=== PATIENT | female | born 1950 | race Caucasian/White ===

== ENCOUNTER → 2021-06-11 | Outpatient (CLI) | payer MEDICARE, OTHER ==
[~2021-06-11] MED LIST: ALDACTONE 25MG25 MG PO; AMIODARONE HCL200 MG PO; ELIQUIS 5 MG TAB5 MG PO; ENTRESTO 24 MG1 EACH PO; FUROSEMIDE40 MG PO; MEDROL4 MG PO; METOPROLOL SUCC50 MG PO
== END ==
LOC: ECHO 09:02 → HEART 5 09:02
DX: R06.02 Shortness of breath (principal); I20.8 Other forms of angina pectoris; I08.3 Combined rheumatic disorders of mitral, aortic and tricuspid valves
CPT/HCPCS: ECHO; 78452; 93306; A9502

== ENCOUNTER → 2021-06-19 | Outpatient (CLI) | payer MEDICARE | LOC: HEART 5 09:10 | DX: R06.02 Shortness of breath (principal); Z79.899 Other long term (current) drug therapy | CPT/HCPCS: 94010; 94729 ==

== ENCOUNTER → 2022-02-12 | Outpatient (CLI) | payer MEDICARE, OTHER | LOC: HEART 5 13:24 | DX: I49.5 Sick sinus syndrome (principal) ==

== ENCOUNTER 2022-03-21 06:56 | Inpatient (IN) | payer MEDICARE, MEDICAID ==
[~2022-03-21] VITALS: Ht 160 cm; Wt 90.7 kg
[2022-03-21 08:21] LABS: HEMOGLOBIN 14.5 gm/dl (12.3-15.3); RED BLOOD COUNT 4.73 M/UL (4.00-5.10); WHITE BLOOD COUNT 8.2 K/UL (4.5-11.0)
[2022-03-21 09:04] LABS: BUN/CREATININE RATIO 18 (0-10)
[2022-03-21] MEDS ORDERED: AMIODARONE HCL200 MG PO (12:59)
[2022-03-21] MEDS ORDERED: FUROSEMIDE20 MG PO (13:00)
[2022-03-21] MEDS ORDERED: ENTRESTO 24 MG1 EACH PO (13:01)
[2022-03-21] MEDS ORDERED: FLONASE 0.05% N16 GM (13:02)
[2022-03-21] MEDS ORDERED: NITROGLYCERIN0.4 MG SL (13:02)
[2022-03-21] MEDS ORDERED: CYANOCOBAL1000 MCG/1 INJ (13:03)
[2022-03-22 05:03] LABS: HEMOGLOBIN 13.8 gm/dl (12.3-15.3); RED BLOOD COUNT 4.6 M/UL (4.00-5.10); WHITE BLOOD COUNT 7.5 K/UL (4.5-11.0)
[2022-03-22 05:22] LABS: BUN/CREATININE RATIO 15 (0-10)
[2022-03-22] MEDS ORDERED: CARDIZEM 60MG T60 MG PO (19:29)
== END 2022-03-22 19:45 | disposition home or self-care (01) | DRG 309 ==
LOC: ER1 06:56 → PROG CARE 11:24 → CDU 11:24 → PROG CARE 16:39
PROVIDERS: Physician Assistant; Student in an Organized Health Care Education/Training Program; ADMIT Internal Medicine
DX: I48.0 Paroxysmal atrial fibrillation (principal); I50.22 Chronic systolic (congestive) heart failure; J98.11 Atelectasis; N39.0 Urinary tract infection, site not specified; F17.200 Nicotine dependence, unspecified, uncomplicated; J44.9 Chronic obstructive pulmonary disease, unspecified; I27.20 Pulmonary hypertension, unspecified; I42.8 Other cardiomyopathies; I25.10 Atherosclerotic heart disease of native coronary artery without angina pectoris; F41.9 Anxiety disorder, unspecified; F32.A Depression, unspecified; I49.5 Sick sinus syndrome; E78.5 Hyperlipidemia, unspecified; I11.0 Hypertensive heart disease with heart failure; Z86.14 Personal history of Methicillin resistant Staphylococcus aureus infection; Z79.899 Other long term (current) drug therapy; Z95.1 Presence of aortocoronary bypass graft; Z90.710 Acquired absence of both cervix and uterus; Z83.6 Family history of other diseases of the respiratory system; Z80.0 Family history of malignant neoplasm of digestive organs; Z79.01 Long term (current) use of anticoagulants; Z86.16 Personal history of COVID-19; Z86.73 Personal history of transient ischemic attack (TIA), and cerebral infarction without residual deficits; Z95.0 Presence of cardiac pacemaker
CPT/HCPCS: 0240U; 36415; 71045; 71046; 80048; 80053; 81001; 82550; 82553; 83605; 83735; 83880; 84484; 85025; 85610; 85730; 87086; 93005; 96374; 96375; 99285; J0696

== ENCOUNTER 2022-06-10 08:20 | Emergency (ER) | payer MEDICARE ==
[~2022-06-10 08:20] MED LIST changes: +CARDIZEM 60MG T60 MG PO; +CYANOCOBAL1000 MCG/1 INJ; +FLONASE 0.05% N16 GM; +FUROSEMIDE20 MG PO; +NITROGLYCERIN0.4 MG SL
[2022-06-10 09:51] LABS: HEMOGLOBIN 15.1 gm/dl (12.3-15.3); RED BLOOD COUNT 4.9 M/UL (4.00-5.10); WHITE BLOOD COUNT 7.8 K/UL (4.5-11.0)
[2022-06-10] MEDS ORDERED: AMOX TR-K CLV1 EAC4 PO (11:28)
== END 2022-06-10 12:00 | disposition home or self-care (01) ==
LOC: ER1 08:20
PROVIDERS: Physician Assistant
DX: K57.32 Diverticulitis of large intestine without perforation or abscess without bleeding (principal); I50.9 Heart failure, unspecified; I48.91 Unspecified atrial fibrillation; R00.1 Bradycardia, unspecified; K21.9 Gastro-esophageal reflux disease without esophagitis; Z90.710 Acquired absence of both cervix and uterus
CPT/HCPCS: 80053; 85025; 99284; Q9967